=== PATIENT | male | born 2000 | race Caucasian/White ===

== ENCOUNTER 2019-06-07 21:57 | Emergency (ER) | payer SELFPAY ==
[~2019-06-07 21:57] MED LIST: ISOVUE-370 76%-LOCM 1 ML ONE
[2019-06-07 22:20] LABS: Bilirubin Negative (Negative); Blood, Urine Negative (Negative); Clarity Clear (Clear); Glucose, Urine (Dipstick) Normal (Negative); Leukocyte Negative Leu/uL (Negative); Nitrite Negative (Negative); Protein, Urine (Dipstick) Negative (Neg-Trace); Urobilinogen Normal mg/dL (Less than 2)
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
[2019-06-07] MEDS ORDERED: Fentanyl 100 MCG/2 ML VIAL ONE (22:23)
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
[2019-06-07] MEDS ORDERED: Adacel (T-DAP) 0.5 ML SYRINGE ONE (23:07)
== END 2019-06-07 23:27 | disposition home or self-care (01) ==
LOC: ERS 21:57
DX: R10.32 Left lower quadrant pain (principal); Z87.891 Personal history of nicotine dependence; Z23 Encounter for immunization; V89.2XXA Person injured in unspecified motor-vehicle accident, traffic, initial encounter; R07.89 Other chest pain
CPT/HCPCS: 70450; 71260; 72125; 74177; 81003; 90471; 90715; 96361; 96374; G0390; J3010; Q9966